=== PATIENT | female | born 1950 | race Caucasian/White ===

== ENCOUNTER 2018-07-17 15:06 | Emergency (ER) | payer MEDICAID, OTHER ==
[~2018-07-17] VITALS: Ht 165.1 cm; Wt 68.1 kg
[2018-07-17 15:37] VITALS: BP 161/40
== END 2018-07-17 20:43 | disposition left against medical advice (07) ==
LOC: ER 15:06
DX: Z53.21 Procedure and treatment not carried out due to patient leaving prior to being seen by health care provider (principal)

== ENCOUNTER 2018-07-22 13:53 | Emergency (ER) | payer OTHER ==
[~2018-07-22] VITALS: Ht 165.1 cm; Wt 68.0 kg
[2018-07-22] MEDS ORDERED: IBUPROFEN 600MG TABLET PO ONE (15:15)
[2018-07-22] MEDS ORDERED: CEPHALEXIN 250MG CAPSULE PO ONE (15:15)
[2018-07-22 16:48] VITALS: BP 128/76
== END 2018-07-22 15:28 | disposition home or self-care (01) ==
LOC: ER 14:14
DX: M25.512 Pain in left shoulder (principal); S43.402A Unspecified sprain of left shoulder joint, initial encounter; Y93.84 Activity, sleeping; Y92.89 Other specified places as the place of occurrence of the external cause; N61.1 Abscess of the breast and nipple
CPT/HCPCS: 99283

== ENCOUNTER 2019-03-17 13:04 | Inpatient (IN) | payer OTHER, MEDICAID ==
[~2019-03-17] VITALS: Ht 165.1 cm; Wt 79.4 kg
[2019-03-17] MEDS ORDERED: GLIP5TAB12 MT (13:16)
[2019-03-17 14:55] LABS: BASOPHILS % 0.3 % (0.0-2.0); EOSINOPHILS % 0.2 % (0.0-5.0); HEMATOCRIT. 43.7 % (36.0-48.0); HEMOGLOBIN. 15.1 g/dL (12.0-16.0); LYMPHOCYTES % 14.8 % (20.0-50.0); MEAN CORPUSCULAR HEMOGLOBIN 30.7 pg (28.0-32.0); MEAN CORPUSCULAR VOLUME 88.7 fL (81.0-99.0); MEAN PLATELET VOLUME 10.7 fl (7.4-10.4); MONOCYTES % 8.6 % (2.0-8.0); NEUTROPHILS % 76.1 % (40.0-76.0); PLATELET 159 x1000/uL (130-400); RED BLOOD CELL COUNT 4.92 mill/uL (4.2-5.4)
[2019-03-17 15:02] LABS: CHLORIDE 103 mEq/L (98-107)
[2019-03-17] MEDS ORDERED: KCL 10MEQ/50ML PREMIX 50 ML IV ONE (16:15)
[2019-03-17] MEDS ORDERED: POTASSIUM CHLORIDE 20MEQ TABLET SR PO ONE (16:15)
[2019-03-17] MEDS ORDERED: ASPIRIN 81MG TABLET PO ONE (16:45)
[2019-03-17] MEDS ORDERED: ONDANSETRON HCL 4MG/2ML INJ IV PRN (17:00)
[2019-03-17] MEDS ORDERED: HYDRALAZINE 20MG/ML VIAL IV PRN (17:00)
[2019-03-17] MEDS ORDERED: KETOROLAC 15MG/ML VIAL IV PRN (17:00)
[2019-03-17] MEDS ORDERED: POTASSIUM CHLORIDE 20MEQ TABLET SR PO SCH (17:00)
[2019-03-17 17:50] LABS: CLARITY URINE CLOUDY (CLEAR); COLOR URINE YELLOW (YELLOW); KETONES URINE NEGATIVE (NEGATIVE); LEUKOCYTE ESTERASE URINE 3+ (NEGATIVE); NITRITE URINE NEGATIVE (NEGATIVE); OCCULT BLOOD URINE 1+ (NEGATIVE); PROTEIN URINE TRACE (NEGATIVE)
[2019-03-17 18:07] LABS: LDL CHOLESTEROL 119 mg/dL (5-100)
[2019-03-17 18:10] LABS: HDL CHOLESTEROL 53 mg/dL (40-59)
[2019-03-17] MEDS: BUDESONIDE 0.5MG/2ML NEB HHN SCH (20:15)
[2019-03-17] MEDS ORDERED: DEXTROSE 50% WATER 50ML SYRINGE IV PRN (22:15)
[2019-03-17] MEDS ORDERED: MAGNESIUM 2 G PREMIX 50 ML IV SCH (22:15)
[2019-03-17 22:38] LABS: T4 FREE 2.75 ng/dL (0.76-1.46)
[2019-03-18] MEDS ORDERED: CEFTRIAXONE 1 G PREMIX 50 ML IV SCH (01:15)
[2019-03-18 04:59] LABS: BASOPHILS % 0.8 % (0.0-2.0); EOSINOPHILS % 0.6 % (0.0-5.0); HEMATOCRIT. 40.7 % (36.0-48.0); LYMPHOCYTES % 19.3 % (20.0-50.0); MEAN CORPUSCULAR HEMOGLOBIN 30.4 pg (28.0-32.0); MEAN CORPUSCULAR VOLUME 88.5 fL (81.0-99.0); MEAN PLATELET VOLUME 11.2 fl (7.4-10.4); MONOCYTES % 11.9 % (2.0-8.0); NEUTROPHILS % 67.4 % (40.0-76.0); PLATELET 145 x1000/uL (130-400); RED CELL DISTRIBUTION WIDTH 12.8 % (11.6-14.6)
[2019-03-18 05:05] LABS: CHLORIDE 105 mEq/L (98-107)
[2019-03-18] MEDS ORDERED: POTASSIUM CHLORIDE INJ 40 MEQ in DEXT 5% WATER 250 ML IV SCH (06:30)
[2019-03-18] MEDS: IPRATROPIUM/ALBUTEROL 0.5-3(2.5)MG/3ML NEB HHN PRN (06:50)
[2019-03-18] MEDS: BUDESONIDE 0.5MG/2ML NEB HHN SCH ×2 (08:03→09:47)
[2019-03-18] MEDS: INSULIN LISPRO 100 UNITS/ML SUBCUT SCH ×3 (08:20→20:51)
[2019-03-18] MEDS: ASPIRIN 81MG TABLET PO SCH (10:11)
[2019-03-18] MEDS: BLOOD SUGAR DIAGNOSTIC STRIP TEST SCH ×4 (10:13→20:51)
[2019-03-18] MEDS: POTASSIUM CHLORIDE 20MEQ TABLET SR PO SCH (10:13)
[2019-03-18 11:16] LABS: *AMPHETAMINES SCREEN URINE NEGATIVE (NEGATIVE); *BARBITURATES SCREEN URINE NEGATIVE (NEGATIVE); *BENZODIAZEPINES SCREEN URINE NEGATIVE (NEGATIVE); *COCAINE SCREEN URINE NEGATIVE (NEGATIVE); CANNABINOID URINE SCREEN NEGATIVE (NEGATIVE); PHENCYCLIDINE URINE SCREEN NEGATIVE (NEGATIVE)
[2019-03-18 11:17] LABS: METHADONE URINE SCREEN NEGATIVE (NEGATIVE); OPIATES URINE SCREEN NEGATIVE (NEGATIVE)
[2019-03-18 13:10] VITALS: BP 138/94
[2019-03-18] MEDS: ENOXAPARIN 40MG/0.4ML SYR SUBCUT SCH (14:54)
[2019-03-18] MEDS: METHIMAZOLE 5MG TABLET PO SCH (15:36)
[2019-03-18 16:00] VITALS: BP 150/50
[2019-03-18 20:00] VITALS: BP 150/59
[2019-03-18] MEDS: INSULIN GLARGINE UD 100 UNITS/ML SYR SUBCUT SCH (21:06)
[2019-03-19 00:07] VITALS: BP 136/61
[2019-03-19] MEDS: BUDESONIDE 0.5MG/2ML NEB HHN SCH ×2 (00:58→09:15)
[2019-03-19] MEDS ORDERED: CEFTRIAXONE 1 G PREMIX 50 ML IV SCH (01:00)
[2019-03-19] MEDS: IPRATROPIUM/ALBUTEROL 0.5-3(2.5)MG/3ML NEB HHN PRN ×2 (01:01→09:15)
[2019-03-19 04:00] VITALS: BP 143/84
[2019-03-19] MEDS: BLOOD SUGAR DIAGNOSTIC STRIP TEST SCH ×2 (06:02→12:35)
[2019-03-19 07:31] LABS: CHLORIDE 106 mEq/L (98-107)
[2019-03-19] MEDS: INSULIN LISPRO 100 UNITS/ML SUBCUT SCH ×2 (07:38→12:53)
[2019-03-19 07:42] LABS: BASOPHILS % 0.4 % (0.0-2.0); HEMATOCRIT. 40.6 % (36.0-48.0); LYMPHOCYTES % 22.5 % (20.0-50.0); MEAN CORPUSCULAR HEMOGLOBIN 30.5 pg (28.0-32.0); MEAN CORPUSCULAR VOLUME 88.6 fL (81.0-99.0); MEAN PLATELET VOLUME 10.9 fl (7.4-10.4); MONOCYTES % 9.6 % (2.0-8.0); NEUTROPHILS % 66.5 % (40.0-76.0); PLATELET 135 x1000/uL (130-400); RED BLOOD CELL COUNT 4.58 mill/uL (4.2-5.4); RED CELL DISTRIBUTION WIDTH 13.1 % (11.6-14.6)
[2019-03-19 08:00] VITALS: BP 143/66
[2019-03-19] MEDS: POTASSIUM CHLORIDE 20MEQ TABLET SR PO SCH (09:42)
[2019-03-19] MEDS: ASPIRIN 81MG TABLET PO SCH (09:42)
[2019-03-19] MEDS: METHIMAZOLE 5MG TABLET PO SCH (09:42)
[2019-03-19] MEDS: INSULIN GLARGINE UD 100 UNITS/ML SYR SUBCUT SCH (09:43)
[2019-03-19 12:00] VITALS: BP 132/75
[2019-03-19] MEDS: ENOXAPARIN 40MG/0.4ML SYR SUBCUT SCH (15:40)
[2019-03-19 16:00] VITALS: BP 128/48
[2019-03-19 16:06] VITALS: BP 128/48
[2019-03-19] MEDS ORDERED: METOPROLOL TARTRATE 25MG TABLET PO SCH (21:00)
== END 2019-03-19 17:09 | disposition home or self-care (01) | DRG 690 ==
LOC: ER 13:04 → 7WST 16:44 → EDBEDREQ 16:48 → ENRESERV 03-18 12:40
PROVIDERS: ADMIT Internal Medicine; ATTEND Internal Medicine
DX: N39.0 Urinary tract infection, site not specified (principal); I50.40 Unspecified combined systolic (congestive) and diastolic (congestive) heart failure; R07.89 Other chest pain; I11.0 Hypertensive heart disease with heart failure; E05.90 Thyrotoxicosis, unspecified without thyrotoxic crisis or storm; E78.5 Hyperlipidemia, unspecified; E11.9 Type 2 diabetes mellitus without complications; E87.6 Hypokalemia; E78.00 Pure hypercholesterolemia, unspecified; J44.9 Chronic obstructive pulmonary disease, unspecified; Z87.442 Personal history of urinary calculi; Z90.89 Acquired absence of other organs; Z98.891 History of uterine scar from previous surgery; Z88.2 Allergy status to sulfonamides
CPT/HCPCS: 36415; 71045; 72070; 78582; 80048; 80053; 80061; 80305; 81003; 82962; 83036; 83735; 83880; 84132; 84439; 84443; 84481; 84484; 85025; 87077; 87186; 93005; 93306; 94640; 99291; A9558; J0696; J1650; J1815; J3475; J3480; J7040; J7060; J7620; J7626

== ENCOUNTER 2020-01-06 12:09 | Emergency (ER) | payer MEDICAID, MEDICARE, OTHER ==
[~2020-01-06] VITALS: Ht 165.1 cm; Wt 50.0 kg
[~2020-01-06 12:09] MED LIST: GLIP5TAB12 MT
[2020-01-06] MEDS ORDERED: ACETAMINOPHEN WITH CODEINE 300/30MG TABLET PO ONE (12:45)
[2020-01-06 13:01] VITALS: BP 144/80
[2020-01-06] MEDS ORDERED: GLUCAGON,HUMAN RECOMBINANT 1MG/VIAL IM ONE (13:45)
== END 2020-01-06 15:08 | disposition home or self-care (01) ==
LOC: ER 12:09
DX: M17.0 Bilateral primary osteoarthritis of knee (principal); J44.9 Chronic obstructive pulmonary disease, unspecified; E11.9 Type 2 diabetes mellitus without complications; Z90.49 Acquired absence of other specified parts of digestive tract; Z88.2 Allergy status to sulfonamides; E05.90 Thyrotoxicosis, unspecified without thyrotoxic crisis or storm
CPT/HCPCS: 73562; 99282; 99283